=== PATIENT | male | born 1985 | race Asian ===

== ENCOUNTER 2020-05-30 18:20 | Emergency (ER) | payer OTHER ==
[2020-05-30 20:34] LABS: RED BLOOD COUNT 4.9 M/UL (4.20-5.50); WHITE BLOOD COUNT 4.1 K/UL (4.5-11.0)
[2020-05-30 20:57] LABS: BUN/CREATININE RATIO 14 (0-10)
== END 2020-05-30 23:30 | disposition home or self-care (01) ==
LOC: ER1 18:20
PROVIDERS: Family Medicine
DX: U07.1 COVID-19 (principal); E11.65 Type 2 diabetes mellitus with hyperglycemia
CPT/HCPCS: 71045; 80053; 81001; 83605; 85025; 99285; U0003